=== PATIENT | female | born 1950 | race Caucasian/White ===

== ENCOUNTER 2017-04-04 17:24 | Emergency (ER) | payer OTHER, MEDICARE ==
[~2017-04-04] VITALS: Ht 165.1 cm; Wt 90.3 kg
[2017-04-04 17:28] VITALS: BP 103/64
--- NOTE | 2017-04-04 17:36 | ED GI/GU/ABDOMINAL COMPLAINT ---
See Addendum History of Present Illness General Chief Complaint: Abdominal Pain/Flank Pain Stated Complaint: ABD PAIN Source: patient Exam Limitations: no limitations Vital Signs & Intake/Output Vital Signs & Intake/Output Vital Signs Date Time Temp Pulse Resp B/P B/P Pulse O2 O2 Flow FiO2 Mean Ox Delivery Rate 04/04 1728 98.9 100 15 103/64 100 Room Air Allergies Coded Allergies: erythromycin base (From ERYTHROCIN) (Severe, ABDOMINAL CRAMPING 04/04/17) moxifloxacin (From AVELOX) (Severe, UNKNOWN 04/04/17) Reconcile Medications No Known Home Medications Triage Note: PT TO ED FOR LUQ ABD X 2DAYS. PT REPORTING COLONSCOPY YESTERDAY AND NOW HAVING SEVERE LUQ PAIN. Triage Nurses Notes Reviewed? yes Onset: Gradual Duration: constant Timing: recent history Quality/Severity: moderate Severity Numbers: 5 Radiation: no radiation HPI: Patient is a 66-year-old female with a past medical history of chronic pain currently in pain management who presents emergency room stating that yesterday patient had a scheduled routine colonoscopy performed by DR. FRANSISCO GARCIA and which she states that after the procedure she was told that they remove one small polyp however all of the findings were unremarkable. Patient had water left upper quadrant abdominal tenderness after the procedure and thought that the symptoms would improve however today symptoms still persist and are constant. Patient has been able tolerate by mouth with no change in symptoms. Patient has passed gas however no bowel movement (TRAVIS MURRELL) Past History Travel History Traveled to [place] past 21 day No Medical History Any Pertinent Medical History? see below for history Neurological: NONE EENT: NONE Cardiovascular: NONE Respiratory: NONE Gastrointestinal: NONE Hepatic: NONE Renal: NONE Musculoskeletal: CHRONIC PAIN ARTHRITIS Psychiatric: NONE Endocrine: NONE Blood Disorders: NONE Cancer(s): NONE Surgical History Surgical History: non-contributory Psychosocial History What is your primary language Polish Tobacco Use: Never used ETOH Use: denies use Illicit Drug Use: marijuana Family History Hx Contributory? No (TRAVIS MURRELL) Review of Systems Review of Systems Constitutional: Reports: no symptoms. EENTM: Reports: no symptoms. Respiratory: Reports: no symptoms. Cardiovascular: Reports: no symptoms. GI: Reports: see HPI, abdominal pain. Genitourinary: Reports: no symptoms. Musculoskeletal: Reports: no symptoms. Skin: Reports: no symptoms. Neurological/Psychological: Reports: no symptoms. Hematologic/Endocrine: Reports: no symptoms. Immunologic/Allergic: Reports: no symptoms. All Other Systems: Reviewed and Negative (TRAVIS MURRELL) Physical Exam Physical Exam General Appearance: no apparent distress, alert, comfortable Gastrointestinal: normal bowel sounds, soft, LEFT UPPER QUADRANT AND LATERAL ABDOMEN POINT TENDERNESS nO REBOUND TENDERNESS NO PERITONEAL SIGNS NO RIGHT LOWER QUADRANT PAIN Comments: HEENT: Normal EENT exam, Respiratory: Chest nontender. No respiratory distress.breath sounds clear to auscultation bilaterally Abdomen: Soft, nontender nondistended, no appreciable organomegaly. Normal bowel sounds. No ascites Extremity: No edema, no calf tenderness to palpation, normal and equal pulses. Neuro: Alert oriented x3, motor sensory normal, Skin: No appreciable rash on exposed skin, skin is warm and dry. Psych: Mood and affect is normal, memory and judgment is normal. Core Measures ACS in differential dx? No Severe Sepsis Present: No Septic Shock Present: No (TRAVIS MURRELL) Progress Differential Diagnosis: AAA, AMI, appendicitis, biliary colic, bowel obstruction , cholecystitis, diverticulitis, esophageal varices, hernia, hemorrhoids, ischemic bowel, inflamm bowel dis, orchitis, pancreatitis, prostatitis, peptic ulcer, PUD/GERD, perforated viscous, pyelonephritis, SBO, ureterolithiasis, urinary retention, UTI/pyelo, BOWEL PERFORATION Plan of Care: Orders Procedure Date/time Status LACTIC ACID 04/04 2050 Active LIPASE 04/04 1750 Complete LACTIC ACID 04/04 1750 Complete COMPREHENSIVE METABOLIC PANEL 04/04 1750 Complete CBC WITHOUT DIFFERENTIAL 04/04 1750 Complete AMYLASE 04/04 175 Complete Laboratory Tests 04/04/17 1810: Anion Gap 7, Estimated GFR > 60, BUN/Creatinine Ratio 14.3, Glucose 86, Lactic Acid 1.1, Calcium 9.7, Total Bilirubin 0.4, AST 24, ALT 43, Alkaline Phosphatase 78, Total Protein 6.6, Albumin 4.0, Globulin 2.6, Albumin/Globulin Ratio 1.5, Amylase 32, Lipase 96, CBC w Diff NO MAN DIFF REQ, RBC 3.91 L, MCV 94.3, MCH 31.4 H, RDW 13.7, MPV 9.3, Gran % 59.0, Lymphocytes % 26.3, Monocytes % 9.7 H, Eosinophils % 4.3, Basophils % 0.7, Absolute Granulocytes 4.8, Absolute Lymphocytes 2.1, Absolute Monocytes 0.8 H, Absolute Eosinophils 0.3, Absolute Basophils 0.1, PUBS MCHC 33.3 Patient was offered pain medications and declined patient currently is in no apparent distress Patient's blood work was unremarkable as was the abdominal x-ray no concerns of free air or perforation or obstruction Discussed results with patient upon discharge she looks well no apparent distress and will comply with discharge instructions and had no questions. Discussed disposition plan with DR. JOHN (TRAVIS MURRELL) Diagnostic Imaging: Viewed by Me: Radiology Read. Radiology Impression: no acute abnormality Initial ED EKG: none Comments: PATIENT: ANDREI JAEGER PRESENT AGE: 66 PATIENT ACCOUNT NO: [id number] : 49 LOCATION: [facility] ORDERING PHYSICIAN: EVELYN JOHN DO SERVICE DATE: 04/04/17 EXAM TYPE: RAD - [id number] VIEWS EXAMINATION: XR ABDOMEN MULTIPLE VIEWS CLINICAL INDICATION: Abdominal pain following colonoscopy. COMPARISON: None. TECHNIQUE: Supine and erect views of the abdomen and pelvis. FINDINGS: Limited exam secondary to patient body habitus. There is a minimal amount of retained stool throughout the colon. The bowel gas pattern is otherwise nonspecific, without findings indicative of small bowel obstruction or ileus. A pessary is identified within the pelvis. There is limited evaluation of the bilateral lung bases, which are partially excluded from the exam. Incidental note is made of levoscoliosis of the lumbar spine. No acute osseous abnormality is identified. IMPRESSION: Limited exam secondary to patient body habitus and partial exclusion of the bilateral lung bases. Nonspecific bowel gas pattern, without findings indicative of small bowel obstruction or ileus. DICTATED BY: LUDY SAMANIEGO MD DATE/TIME DICTATED:04/04/171902 BENCH ASSEMBLER BATTERY:EVEARRDO DATE/TIME TRANSCRIBED:04/04/171902 (TRAVIS MURRELL) Departure Departure Disposition: HOME OR SELF CARE Condition: Stable Clinical Impression Primary Impression: Abdominal pain Additional Instructions: As discussed if symptoms worsen or if you develop any new concerning symptoms return to emergency room immediately Follow-up tomorrow with your marble installer supervisor Dr. Garcia. Please provide blood work and x-rays provided to you in the emergency room for follow-up Departure Forms: Customer Survey General Discharge Information Prescriptions: Current Visit Scripts No Known Home Medications (TRAVIS MURRELL) PA/SENIOR PHP WEB DEVELOPER Co-Sign Statement Statement: ED Attending supervision documentation- [] I saw and evaluated the patient. I have also reviewed all the pertinent lab results and diagnostic results. I agree with the findings and the plan of care as documented in the PA's/SENIOR PHP WEB DEVELOPER's documentation. [x I have reviewed the ED Record and agree with the PA's/SENIOR PHP WEB DEVELOPER's documentation. [] Additions or exceptions (if any) to the PAs/SENIOR PHP WEB DEVELOPER's note and plan are summarized below: [] (EVELYN JOHN DO)
[2017-04-04 18:19] LABS: ABSOLUTE BASOPHIL COUNT 0.1 /CUMM (0.0-0.2); ABSOLUTE EOSINOPHIL COUNT 0.3 /CUMM (0.0-0.7); ABSOLUTE GRANULOCYTE CT 4.8 /CUMM (1.4-6.5); ABSOLUTE LYMPH COUNT 2.1 /CUMM (1.2-3.4); ABSOLUTE MONOCYTE COUNT 0.8 /CUMM (0.10-0.60); BASOPHIL % 0.7 % (0.0-2.0); EOSINOPHIL % 4.3 % (0-5); HEMATOCRIT 36.9 % (37-47); MEAN CORPUSCULAR HGB 31.4 PG (27.0-31.0); MEAN CORPUSCULAR HGB CONC 33.3 G/DL (33.0-37.0); MEAN CORPUSCULAR VOLUME 94.3 FL (81.0-99.0); MEAN PLATELET VOLUME 9.3 FL (7.4-10.4); PLATELET COUNT 142 /CUMM (130-400); RBC DISTRIBUTION WIDTH 13.7 % (11.5-14.5); RED BLOOD CELL CT 3.91 /CUMM (4.20-5.40); WHITE BLOOD CELL COUNT 8.1 /CUMM (4.8-10.8)
--- NOTE | 2017-04-04 19:13 | RADIOLOGY REPORT ---
EXAMINATION: XR ABDOMEN MULTIPLE VIEWS CLINICAL INDICATION: Abdominal pain following colonoscopy. COMPARISON: None. TECHNIQUE: Supine and erect views of the abdomen and pelvis. FINDINGS: Limited exam secondary to patient body habitus. There is a minimal amount of retained stool throughout the colon. The bowel gas pattern is otherwise nonspecific, without findings indicative of small bowel obstruction or ileus. A pessary is identified within the pelvis. There is limited evaluation of the bilateral lung bases, which are partially excluded from the exam. Incidental note is made of levoscoliosis of the lumbar spine. No acute osseous abnormality is identified. IMPRESSION: Limited exam secondary to patient body habitus and partial exclusion of the bilateral lung bases. Nonspecific bowel gas pattern, without findings indicative of small bowel obstruction or ileus.
== END 2017-04-04 19:43 ==
LOC: ERH 17:24 → EDSEX 17:37 → ERH 17:37
PROVIDERS: Physician Assistant
DX: R10.12 Left upper quadrant pain (principal)
CPT/HCPCS: 74020